=== PATIENT | male | born 1990 | race Caucasian/White ===

== ENCOUNTER 2016-12-26 16:43 | Emergency (ER) | payer SELFPAY ==
--- NOTE | 2016-12-26 18:14 | UC ---
Cardiac HPI - HPI Summary HPI Summary: YESTERDAY AFTERNOON WAS DRINKING WATER WHEN HE SUDDENLY FELT LIKE THE FLUID WOULD NOT GO DOWN. COULD NOT SWALLOW ANY SOLIDS EITHER. TODAY HAS BEEN ABLE TO GET ABOUT 8OZ OF WATER DOWN OVER THE DAY. HAS NOT TRIED SOLID FOOD TODAY. FEELS TIGHTNESS IN UPPER CHEST AND PERSISTENT GLOBUS SENSATION. - History of Current Complaint Chief Complaint: UCChestPain Stated Complaint: CHEST TIGHTNESS Time Seen by Provider: 12/26/16 17:49 Hx Obtained From: Patient Onset/Duration: Sudden Onset, Lasting Hours, Still Present Timing: Constant Initial Severity: Moderate Current Severity: Moderate Pain Intensity: 6 Chest Pain Location: Upper Sternal Character: Tightness Aggravating: Nothing - FOOD Alleviating: Nothing Associated Signs & Symptoms: Positive: Chest Pain, Nausea/Vomiting. Negative: Anxiety, Recent Stress, SOB, Fever, Palpitations, Cough - Allergy/Home Medications Allergies/Adverse Reactions: Allergies Allergy/AdvReac Type Severity Reaction Status Date / Time Hydrocodone AdvReac Severe N/V Verified 12/26/16 16:57 PMH/Surg Hx/FS Hx/Imm Hx - Additional Past Medical History Additional PMH: GASTROSCHISIS AT - Surgical History Surgical History: Yes Surgery Procedure, Year, and Place: numerous abdominal surgeries to age 6 months - Family History Known Family History: Positive: Hypertension - Social History Alcohol Use: Rare Alcohol Amount: 2 drinks Substance Use Type: None Smoking Status (MU): Never Smoked Tobacco Review of Systems Constitutional: Negative Respiratory: Negative Cardiovascular: Chest Pain Gastrointestinal: Vomiting, Other - NAUSEA AND GLOBUS SENSATION All Other Systems Reviewed And Are Negative: Yes Physical Exam Triage Information Reviewed: Yes Appearance: Well-Appearing, No Pain Distress, Well-Nourished Vital Signs: Initial Vital Signs Temp 97.8 F 12/26/16 16:48 Pulse 83 12/26/16 16:48 Resp 18 12/26/16 16:48 BP 162/106 12/26/16 16:48 Pulse Ox 99 12/26/16 16:48 Vital Signs Reviewed: Yes Eyes: Positive: Conjunctiva Clear ENT: Positive: Hearing grossly normal, Pharynx normal Neck: Positive: Supple, Nontender, No Lymphadenopathy Respiratory Exam: Normal Cardiovascular Exam: Normal Abdomen Description: Positive: Soft Musculoskeletal: Positive: No Edema Neurological: Positive: Alert Psychological: Positive: Age Appropriate Behavior Skin: Negative: rashes Diagnostics - EKG Cardiac Rate: NL - 79BPM Cardiac Rhythm: Sinus: Normal Ectopy: None ST Segment: Normal Re-Evaluation - Re-Evaluation First Eval Re-Evaluation Time: 18:45 - PT KEPT DOWN 2 CUPS OF WATER AND 3 PACKAGES OF SALTINES. IS COMFORTABLE WITH D/C HOME AND OUTPT GI FOLLOW-UP Change: Improved - Clinical Impression Provider Diagnoses: SUSPECT ESOPHAGEAL SPASM/STRICTURE Discharge - Discharge Plan Condition: Stable Disposition: HOME Prescriptions: Cyclobenzaprine TAB* [Flexeril 10 MG TAB*] 5 mg PO BID PRN #20 tab PRN Reason: Pain Ondansetron ODT TAB* [Zofran Odt TAB*] 4 mg PO Q6H PRN #20 tab.odt PRN Reason: Nausea/Vomiting Patient Education Materials: Esophageal Stricture (ED), Esophageal Spasm (ED) Referrals: Arjun Jansen MD [Medical Doctor] - If Needed Hay Jaime MD [Medical Doctor] - Additional Instructions: YOUR SYMPTOMS SEEM TO BE STEMMING FROM YOUR ESOPHAGUS. FOLLOW-UP WITH GI FOR FURTHER EVALUATION. GO TO THE ER WITHOUT FAIL IF YOUR SYMPTOMS WORSEN OR IF YOU ARE UNABLE TO KEEP ANYTHING DOWN.
[2016-12-26 18:48] VITALS: BP 144/79
[2016-12-26] MEDS ORDERED: Ondansetron ODT TAB* 4 MG PO ONE (18:48)
== END 2016-12-26 19:09 | disposition home or self-care (01) ==
LOC: UCEAST 16:43
DX: R07.89 Other chest pain (principal); F45.8 Other somatoform disorders; R11.2 Nausea with vomiting, unspecified; Z88.5 Allergy status to narcotic agent
CPT/HCPCS: 93005; 99212; G0463